=== PATIENT | female | born 1995 | race Caucasian/White ===

== ENCOUNTER 2016-09-07 21:00 | Emergency (ER) | payer OTHER ==
[~2016-09-07] VITALS: Ht 157.5 cm; Wt 75.0 kg
[~2016-09-07 21:00] MED LIST: ACET500C5 PO; BACTDS PO; CEPH-443 PO; IBUP400T22 PO; OMEP20CA9 PO
[2016-09-07 21:05] VITALS: Ht 157.5 cm; Wt 75.0 kg
[2016-09-07] MEDS ORDERED: IPRATROPIUM (NEB) 0.5 MG/2.5 ML AMP NEB STA (21:34)
[2016-09-07] MEDS ORDERED: ALBUTEROL 0.083% (NEB) 2.5 MG/3 ML AMP NEB STA (21:34)
[2016-09-07] MEDS ORDERED: UDROBAC PO (21:39)
[2016-09-07] MEDS ORDERED: AZIT250T6 PO (21:39)
[2016-09-07] MEDS ORDERED: ALBU8.5H3 INH (21:39)
--- NOTE | 2016-09-07 21:49 | ERD ---
ER Documentation Chief Complaint Date/Time DATE: 09/07/16 TIME: 21:45 Chief Complaint cough x 2 weeks HPI 20-year-old female with a history of asthma presenting for worsening cough for 10 days. She states she initially started out with body aches, sore throat, runny nose and a slight cough. She felt like she was getting better after a few days but yesterday got significantly worse with chills and worsening cough. She denies any phlegm. She has associated chest pain when she coughs. She still has some sore throat. No nausea, vomiting, headache, diarrhea, facial pain. ROS All systems reviewed and are negative except as per history of present illness. Medications Home Meds Active Scripts Guaifenesin-Codeine Phosphate* (Robitussin* AC) 5 Ml Syrup, 10 ML PO Q6H Y for COUGH, #240 ML Prov:MART SNOWDEN MD 09/07/16 Albuterol Sulfate* (Proair HFA*) 8.5 Gm Hfa.aer.ad, 2 PUFF INH Q4H Y for WHEEZING AND SOB, #1 INHALER Prov:MART SNOWDEN MD 09/07/16 Azithromycin* (Azithromycin*) 250 Mg Tablet, 250 MG PO DAILY, #6 TAB Take 2 tabs on day 1, then 1 tab daily for days 2-5 Prov:MART SNOWDEN MD 09/07/16 Ibuprofen* (Motrin*) 400 Mg Tab, 400 MG PO Q6H Y for PAIN AND OR ELEVATED TEMP, #30 TAB Prov:LUIS RANDOLPH PA-C 07/10/15 Acetaminophen* (Tylophen*) 500 Mg Capsule, 1 CAP PO Q4 Y for PAIN AND OR ELEVATED TEMP, #30 CAP Prov:LUIS RANDOLPH PA-C 07/10/15 Cephalexin* (Keflex*) 500 Mg Capsule, 500 MG PO QID for 7 Days, CAP Prov:LUIS RANDOLPH PA-C 07/10/15 Omeprazole* (Prilosec*) 20 Mg Capsule., 20 MG PO DAILY for 20 Days, CAP Prov:FARHAT HOGAN NP 06/25/15 Sulfamethoxazole-Trimethoprim* (Bactrim* DS) 800-160 Mg Tab, 1 TAB PO BID for 7 Days, TAB Prov:FARHAT HOGAN NP 06/25/15 Reported Medications [None] No Conflict Check 10/30/12 Allergies Allergies: Coded Allergies: No Known Allergy (Unverified , 06/25/15) PMhx/Soc History of Surgery: Yes (APPENDECTOMY 2013) Anesthesia Reaction: No Hx Neurological Disorder: No Hx Respiratory Disorders: Yes (ASTHMA) Hx Cardiac Disorders: No Hx Psychiatric Problems: No Hx Miscellaneous Medical Probl: No Hx Alcohol Use: Yes (OCCASSIONALLY) Hx Substance Use: No Hx Tobacco Use: No Smoking Status: Never smoker FmHx Family History: No diabetes Physical Exam Vitals Vital Signs Date Time Temp Pulse Resp B/P Pulse Ox O2 Delivery O2 Flow Rate FiO2 09/07/16 21:05 99.4 103 20 160/84 100 Physical Exam Const: Frequently coughing on exam, nontoxic, no respiratory distress Head: Atraumatic Eyes: Normal Conjunctiva ENT: Normal External Ears, Nose and Mouth. No oropharyngeal erythema or tonsillar exudate Neck: Full range of motion. Cervical lymphadenopathy. no meningismus. Resp: Clear to auscultation bilaterally, good air movement bilaterally, no wheezing, no rales, no rhonchi Cardio: Slightly tachycardic with regular rhythm, no murmurs Abd: Soft, non tender, non distended. Normal bowel sounds Skin: No petechiae or rashes Back: No midline or flank tenderness Ext: No cyanosis, or edema Neur: Awake and alert, no facial asymmetry Psych: Normal Mood and Affect Results 24 hrs Current Medications Medications (Trade) Dose Ordered Sig/[place] PRN Reason Start Time Stop Time Status Last Admin Dose Admin Ibuprofen (Motrin) 400 mg ONCE ONCE PO 09/07/16 22:00 09/07/16 22:01 Albuterol (Proventil 0.083% (Neb)) 5 mg ONCE STAT NEB 09/07/16 21:34 09/07/16 21:36 DC Ipratropium [place] (Atrovent 0.02% (Neb)) 0.5 mg ONCE STAT NEB 09/07/16 21:34 09/07/16 21:36 DC Procedures/MDM Patient is presenting with symptoms consistent with bronchitis, likely viral or bacterial in etiology. I have a low suspicion for associated pneumonia. I do not suspect pulmonary embolism or pneumothorax. Patients symptoms have stabilized while in the department after therapy. Vitals and respiratory status are stable. Patient is appropriate for outpatient treatment with antibiotics and inhaler as needed. Recommended continued follow up with PCP in the next 2 days. If symptoms are not improving or worsening, patient instructed to return to ED for repeat evaluation. Departure Diagnosis: Primary Impression: Acute bronchitis Bronchitis organism: unspecified organism Qualified Code: J20.9 - Acute bronchitis, unspecified organism Condition: Stable Patient Instructions: Bronchitis, Antiobiotic Treatment (Adult) Additional Instructions: Return to the ER for any worsening symptoms. Do not drive or operate heavy machinery while taking the cough medication, as it is very sedating. MART SNOWDEN MD Sep 07, 2016 21:49
[2016-09-07] MEDS ORDERED: IBUPROFEN 200 MG TAB PO ONE (22:00)
== END 2016-09-07 22:22 | disposition home or self-care (01) ==
LOC: FTE 21:00
DX: J20.9 Acute bronchitis, unspecified (principal); J45.909 Unspecified asthma, uncomplicated
CPT/HCPCS: 94664; Z7610